=== PATIENT | female | born 1985 | race American Indian/Alaskan Native ===

== ENCOUNTER 2018-01-16 01:58 | Inpatient (IN) | payer BC, OTHER ==
[2018-01-16 02:41] VITALS: BMI 28.5
[2018-01-16] MEDS ORDERED: Lactated Ringer's 1,000 ML IV SCH (03:00)
[2018-01-16 03:22] LABS: BASO # 0.1 K/uL (0.0-0.2); BASO % 1.5 % (0.0-2.0); EOS % 0.4 % (0.0-4.0); HEMOGLOBIN 8.6 g/dL (12.0-16.0); LYMPH # 2.2 K/uL (1.0-4.3); LYMPH % 26.8 % (20.0-40.0); MEAN CELL VOLUME 61.5 fl (81.0-99.0); MEAN CORPUSCULAR HEMOGLOBIN 19.7 pg (27.0-31.0); MEAN PLATELET VOLUME 9.5 fl (7.2-11.7); MONO # 0.8 K/uL (0.0-0.8); MONO % 9.5 % (0.0-10.0); NEUT # 5.2 K/uL (1.8-7.0); NEUT % 61.8 % (50.0-75.0); NRBC % 0.3 % (0.0-0.0); RBC 4.37 Mil/uL (3.80-5.20); WHITE BLOOD COUNT 8.4 K/uL (4.8-10.8)
[2018-01-16] MEDS ORDERED: Penicillin G 5 Million Unit Vial IVPB ONE (03:28)
[2018-01-16] MEDS ORDERED: Oxytocin 10 Units/ml Inj IM ONE (06:15)
[2018-01-16] MEDS ORDERED: Oxytocin 10 Units/ml Inj ONE (06:16)
[2018-01-16] MEDS ORDERED: Lidocaine 1% Inj (20ml) ONE (06:20)
--- NOTE | 2018-01-16 06:38 | OBDS ---
MATERNAL INFORMATION Provider Comments: over intact perineum in OP presentation, 9/9, 7lbs 9oz with nuchal cord x 1, followed by shoulders and rest of infant, mouth and nose suctioned on mother's chest, cord clamped a nd cut, cord blood obtained, placenta delivered spontaneously, [id number], vaginal abrasion reparied w ith 3-0 vicryl rapide and local Lidocaine, pt otherwise tolerated procedure well LABOR SUMMARY EDC: 01/10/2018 00:00 No. Babies in Womb: 1 LABOR INFORMATION Onset of Labor: 01/16/2018 01:30 Group B Beta Strep: Positive MEMBRANES Membranes Rupture Method: Spontaneous Rupture of Membranes: 01/16/2018 01:00 Amniotic Fluid Color: Clear Amniotic Fluid Amount: Moderate Amniotic Fluid Odor: Normal
[2018-01-16] MEDS ORDERED: Oxycodone/Acetaminophen 5/325 mg Tab PO PRN ×4 (06:41→08:58)
[2018-01-16] MEDS ORDERED: Measles, Mumps, and Rubella 0.5 ML VIAL SC ONE (06:41)
[2018-01-16] MEDS ORDERED: Benzocaine/Menthol SPRAY TOP PRN ×2 (06:41→08:58)
[2018-01-16] MEDS ORDERED: Multivitamin With Minerals Tab PO SCH (09:00)
[2018-01-16] MEDS: Multivitamin With Minerals Tab PO SCH (09:21)
[2018-01-17 06:20] LABS: HEMOGLOBIN 8.1 g/dL (12.0-16.0); MEAN CELL VOLUME 61.2 fl (81.0-99.0); MEAN CORPUSCULAR HEMOGLOBIN 19.5 pg (27.0-31.0); MEAN CORPUSCULAR HGB CONC 31.8 g/dL (33.0-37.0); RBC 4.17 Mil/uL (3.80-5.20); RED CELL DISTRIBUTION WIDTH 18.4 % (11.5-14.5); WHITE BLOOD COUNT 12.9 K/uL (4.8-10.8)
[2018-01-17] MEDS: Multivitamin With Minerals Tab PO SCH (08:24)
--- NOTE | 2018-01-17 09:29 | OBPPN ---
Datetime: 01/17/2018 09:27 PP Pain Prov: Within normal limits PP Nausea Prov: Denies PP Flatus Prov: Yes PP Breasts Prov: Normal PP Heart Prov: Normal PP Lungs Prov: Normal PP Abdomen/Uterus Prov: Normal PP Lochia Prov: Normal PP Vulva/Perineum Prov: Normal PP CVA Tenderness Prov: Normal PP Extremities Prov: Normal PP C/S Incision Prov: Not Applicable PP Progress Prov: Normal PP Impression Prov: Normal progression PP Plan Prov: Continue present management PP Impression Other Prov: Anemia - asymptomatic PP Progress Note Prov: She feels fine. H/H 03/25 AB pos VZV Immune Rubella Non Immune A; S/P Rubella Non Immune PLAN: cont care Rubella vaccine prior to delivery Vital Signs Provider PP: Reviewed; Within Normal Limits
[2018-01-18] MEDS ORDERED: Measles, Mumps, and Rubella 0.5 ML VIAL SC ONE (09:00)
[2018-01-18] MEDS: Multivitamin With Minerals Tab PO SCH (09:28)
--- NOTE | 2018-01-18 18:24 | OBDCSUM ---
Datetime: 01/18/2018 10:42 Discharged to, Provider: Home Follow up at, Provider: [facility] Disch Instr Activity: Normal activity Disch Instr Diet: Regular Discharge Instructions, Provider: Routine instructions given Discharge Diagnosis, Provider: Term Delivered Discharge Time: 01/18/2018 11:30 Follow up in weeks, Provider: 6 Weeks Disch Referrals: None Disch Activity Restrictions: No sexual activity; Nothing in vagina - [place], tampons, douche Discharge Comment, Provider: i: marlee hoskins doing well chronic anemia p: d/c home f/u 4-6wks rx feso4 bid, motrin, senokot s Contraception after Delivery: Undecided
--- NOTE | 2018-01-18 18:24 | OBPPN ---
Datetime: 01/18/2018 18:17 PP Pain Prov: Within normal limits PP Nausea Prov: Denies PP Flatus Prov: Yes PP Breasts Prov: Normal PP Heart Prov: Normal PP Lungs Prov: Normal PP Abdomen/Uterus Prov: Normal PP CVA Tenderness Prov: Normal PP Extremities Prov: Normal PP Progress Prov: Normal PP Comments Phys Exam Prov: hgb 8.2 PP Impression Prov: Normal progression PP Plan Prov: Discharge PP Progress Note Prov: s: no c/o. + . denies pain i: sp doing well chronic anemia p: d/c home f/u 4-6wks rx feso4 bid, motrin, senokot s IP PP Procedures: None Vital Signs Provider PP: Within Normal Limits
[2018-01-18 23:23] VITALS: BP 110/69; PULSE 74; RESP 19; TEMP 97.7
== END 2018-01-18 11:30 | disposition home or self-care (01) | DRG 373 ==
LOC: H.EROB2 01:58 → H.L&D 02:48 → H.OB/GYN 08:51
PROVIDERS: ADMIT Obstetrics & Gynecology; ATTEND Obstetrics & Gynecology
PROC: 10E0XZZ Delivery of Products of Conception, External Approach (ICD-10-PCS; principal; 2018-01-16)
PROC: 4A1HXCZ Monitoring of Products of Conception, Cardiac Rate, External Approach (ICD-10-PCS; 2018-01-16)
DX: O69.81X0 Labor and delivery complicated by cord around neck, without compression, not applicable or unspecified (principal); O99.824 Streptococcus B carrier state complicating childbirth; Z37.0 Single live birth; Z3A.39 39 weeks gestation of pregnancy; Z88.1 Allergy status to other antibiotic agents; Z91.040 Latex allergy status